=== PATIENT | female | born 1990 | race Caucasian/White ===

== ENCOUNTER 2017-03-22 21:41 | Emergency (ER) | payer MEDICAID ==
--- NOTE | 2017-03-22 22:39 | ED Physician Chart ---
Chief Complaint/HPI - Patient Information Date Seen:: 03/22/17 Time Seen:: 22:00 Chief Complaint:: LEFT FOOT INJURY History of Present Illness:: THIS IS A 27 YO FEMALE WITH CONCERN ABOUT HER LEFT FOOT THAT IS PAINFUL TO WALK ON SINCE EARLIER TODAY. SHE STATES THAT SHE JUST STOOD UP AND TWIST HER LEFT FOOT AND IT HAS BEEN HURTING EVERY SINCE. SHE DENIES ANY PREVIOUS INJURY OF HER LEFT FOOT OR ANKLE. Allergies:: Allergies Allergy/AdvReac Type Severity Reaction Status Date / Time No Known Allergies Allergy Verified 04/30/16 12:52 Vitals:: Vital Signs - 8 hr 03/22/17 21:48 Temp 98.4 F HR 87 RR 19 BP 142/85 O2 Sat % 98 Historian:: Patient Review:: Nurse's Note Reviewed Review of Systems - Review of Systems General/Constitutional: No fever, No chills, No weight loss, No weakness, No diaphoresis, No edema, No loss of appetite Skin: No skin lesions, No rash, No bruising Head: No headache, No light-headedness Eyes: No loss of vision, No pain, No diplopia ENT: No earache, No nasal drainage, No sore throat, No tinnitus Neck: No neck pain, No swelling, No thyromegaly, No stiffness, No mass noted Cardio Vascular: No chest pain, No palpitations, No PND, No orthopnea, No edema Pulmonary: No SOB, No cough, No sputum, No wheezing GI: No nausea, No vomiting, No diarrhea, No pain, No melena, No hematochezia, No constipation, No hematemesis G/U: No dysuria, No frequency, No hematuria Musculoskeletal: Bone or joint pain, No back pain, No muscle pain, Other (LEFT FOOT IS TENDER AND SWOLLEN OVER THE BASE OF THE 5TH METATARSAL BONE) Endocrine: No polyuria, No polydipsia Psychiatric: No prior psych history, No depression, No anxiety, No suicidal ideation Hematopoietic: No bruising, No lymphadenopathy Allergic/Immuno: No urticaria, No angioedema Neurological: No syncope, No focal symptoms, No weakness, No paresthesia, No headache, No seizure, No dizziness, No confusion, No vertigo Past Medical History - Past Medical History Obtainable: Yes Past Medical History: No significant medical hx Family History: None Social History: Smoker, No Alcohol, Illicit Drug Use Surgical History: None Psychiatricy History: None Medication: Reviewed Family Medical History - Family Member Grandmother History Unknown: Yes Name:: Grand mother Living Status: Still Living Hx Family Hypertension: Yes Physical Exam - Physical Examination General/Constitutional: Awake, Well-developed, well-nourished, Alert, No distress, GCS 15, Non-toxic appearing, Ambulatory Head: Atraumatic Eyes: Lids, conjuctiva normal, PERRL, EOMI Skin: Nl inspection, No rash, No skin lesions, No ecchymosis, Well hydrated, No lymphadenopathy ENMT: External ears, nose nl, Nasal exam nl, Lips, teeth, gums nl Neck: Nontender, Full ROM w/o pain, No JVD, No nuchal rigidity, No bruit, No mass, No stridor Respiratory: Nl effort/Exclusion, Clear to Auscultation, No Wheeze/Rhonchi/Rales Cardio Vascular: RRR, No murmur, gallop, rubs, NL S1 S2 GI: No tenderness/rebounding/guarding, No organomegaly, No hernia, Normal BS's, Nondistended, No mass/bruits, No McBurney tenderness : No CVA tenderness Extremities: Full ROM, normal strength in all extremities, No edema, Normal digits & nails Other Extremities comments:: THERE IS SWELLING AND TENDERNESS OF THE LEFT LATERAL FOOT OVER THE 5TH METATARSAL BONE. Neuro/Psych: Alert/oriented, DTR's symmetric, Normal sensory exam, Normal motor strength, Judgement/insight normal, Mood normal, Normal gait, No focal deficits Misc: normal gait, Normal back, No paraspinal tenderness Labs/Radiology/EKG Results - Lab Results Results: Laboratory Tests LEFT FOOT X-RAY = NAD 03/22/17 22:00 Urine Test NEGATIVE Assessment - Assessment General Assessment: SPRAIN ED Septic Shock - . Is Septic Shock (SBP<90, OR Lactate>4 mmol\L) present?: No - <6hrs of presentation: Vital Signs: Vital Signs - 8 hr 03/22/17 21:48 Temp 98.4 F HR 87 RR 19 BP 142/85 O2 Sat % 98 Reassessment (Disposition) - Reassessment Reassessment Condition:: Improved - Diagnosis Diagnosis:: SPRAIN LEFT FOOT - Aftercare/Follow up Instructions Aftercare/Follow-Up Instructions:: Counseled pt regarding lab results/diagnosis & need follow up, Refer to Discharge Instructions, Counseled pt & family regarding lab results/diagnosis & need follow up - Patient Disposition Discharge/Transfer:: Home Condition at Disposition:: Improved ED Discharge Plan - Patient Disposition Admit/Discharge/Transfer: PT DISCHARGED HOME Condition at Disposition: Improved Instructions: Ankle Sprain, [id number], Foot Sprain
--- NOTE | 2017-03-23 10:05 | Diagnostic Imaging Report ---
Left foot (3 views) HISTORY: Pain, trauma No acute bony abnormalities. No fractures. Joint spaces appear normal. IMPRESSION: No acute bony abnormalities
== END 2017-03-22 22:45 | disposition home or self-care (01) ==
LOC: ER 21:41
DX: S93.602A Unspecified sprain of left foot, initial encounter (principal); F17.200 Nicotine dependence, unspecified, uncomplicated; X58.XXXA Exposure to other specified factors, initial encounter; Y93.89 Activity, other specified; Y92.89 Other specified places as the place of occurrence of the external cause; Y99.8 Other external cause status
CPT/HCPCS: 99285; 96372; 73630; 81025; J1885

== ENCOUNTER 2018-02-01 11:18 | Emergency (ER) | payer MEDICAID ==
--- NOTE | 2018-02-01 11:55 | ED Physician Chart ---
ED Chief Complaint/HPI - Patient Information Date Seen:: 02/01/18 Time Seen:: 11:34 Chief Complaint:: BODY ACHES History of Present Illness:: HPI: THIS 27 YEAR OLD FEMALE PRESENTS WITH THREE DAY HISTORY OF SORE THROAT, COUGH WHICH IS PRODUCTIVE OF YELLOW SPUTUMAND BODY ACHES.SHE DENIES ANY FEVER, CHILLS,DIAPHORESIS OR RASH.SHE RATES THE SEVERITY OF THE SORE THROAT A 8/ 10.THERE IS INCREASED PAIN WITH SWALLOWING. Allergies:: Allergies Allergy/AdvReac Type Severity Reaction Status Date / Time No Known Allergies Allergy Verified 04/30/16 12:52 ED Review of Systems - Review of Systems General/Constitutional: No fever, No chills, No weight loss, No weakness, No diaphoresis Skin: No skin lesions Head: Headache (PATIENT HAS HAD A MILD HEADACHEOVER THE PAST THREE DAYSWHICH IS NOT SEVEREAS FOR MIGRAINE HEADACHE.) Eyes: No loss of vision, No diplopia ENT: No earache, Sore throat, No tinnitus Neck: Neck pain, No swelling, No thyromegaly, No stiffness, No mass noted Cardio Vascular: No chest pain, No palpitations, No PND, No orthopnea, No edema Pulmonary: No SOB, Cough, Sputum, No wheezing GI: No nausea, No vomiting, No diarrhea, No constipation, No hematemesis G/U: No dysuria, No frequency, No hematuria Insurance Follow Up Rep: No vaginal discharge, No abnormal vaginal bleed Musculoskeletal: Back pain, Muscle pain Endocrine: No polyuria, No polydipsia Psychiatric: No prior psych history, No depression, No suicidal ideation Hematopoietic: No bruising, No lymphadenopathy Allergic/Immuno: No urticaria, No angioedema Neurological: No syncope, No focal symptoms, Weakness (MILD GENERALIZED WEAKNESSFOR PAST THREE DAYS.), No paresthesia, Headache, No seizure, No dizziness, No confusion, No vertigo ED Past Medical History - Past Medical History Past Medical History: Other (HISTORY OF MIGRAINE HEADACHESIN FAMILY HISTORY OF MIGRAINE) Family History: Other (MIGRAINE HEADACHES.COCATIONAL USE OF ALCOHOL AND SMOKE MARIJUANA.) Family Medical History - Family Member Grandmother History Unknown: Yes Living Status: Still Living Hx Family Hypertension: Yes ED Physical Exam - Physical Examination General/Constitutional: Awake, Well-developed, well-nourished, Alert, Non-toxic appearing, Ambulatory Other Gen/Cons comments:: THE PATIENT STATES THE SEVERITY OF HER NECK PAIN.IN SPITE OF THIS,SHE DOESN'T APPEAR TO BE IN ANY DISTRESS. Head: Atraumatic Eyes: Lids, conjuctiva normal, PERRL, EOMI Skin: No rash, No ecchymosis, No lymphadenopathy ENMT: External ears, nose nl, Nasal exam nl, Lips, teeth, gums nl, Tonsils nl Other ENMT comments:: THERE IS NO ENLARGEMENTFOR INFLAMMATION OF THE TONSILS,AND A SMALL AMOUNT OF WHITE TONSILLAR EXUDATE. Neck: No nuchal rigidity, No stridor Other Neck comments:: THERE WAS NO FULNESS IN THE JERICA-TONSILLAR REGION. THE PATIENT'S VOICE WAS CLEAR AND NOT MUFFLED OR HOARSE. THE PT HAD NO STRIDOR. Respiratory: Nl effort/Exclusion, Clear to Auscultation, No Wheeze/Rhonchi/Rales Cardio Vascular: RRR, No murmur, gallop, rubs, NL S1 S2 Other Cardio Vascular comments:: PERIPHERAL PULSESFOR A GOOD QUALITY IN ALL FOUR EXTREMITIES. GI: No tenderness/rebounding/guarding, No organomegaly, No hernia, Normal BS's, Nondistended, No mass/bruits, No McBurney tenderness Other GI comments:: RECTAL EXAMINATION WAS DEFERRED AT MY DISCRETION. : No CVA tenderness Extremities: No tenderness or effusion, Full ROM, normal strength in all extremities, No edema Other Extremities comments:: NO JOINT INFUSIONSAND THOSE SWOLLEN JOINTSOR TENDERNESS. Neuro/Psych: Alert/oriented, Normal sensory exam, Normal motor strength, Judgement/insight normal, Mood normal, Normal gait, No focal deficits Misc: Normal back, No paraspinal tenderness Other Misc comments:: NO SPINAL TENDERNESSOR DEFORMITY. ED Labs/Radiology/EKG Results - Lab Results Results: Laboratory Tests 02/01/18 12:08 WBC 9.4 RBC 4.03 Hgb 13.5 Hct 38.4 L MCV 95.5 MCH 33.7 H MCHC Differential 35.2 RDW 11.7 Plt Count 171 MPV 7.4 Neutrophils % 72.6 Lymphocytes % 16.3 L Monocytes % 7.4 Eosinophils % 2.3 Basophils % 1.4 CBCWAS UNREMARKABLE WITH NO LEAP OF PSYCHOSIS, ANEMIAFOR PLATELET ABNORMALITY. THE RAPID STREP SCREEN WAS NEGATIVE. HEY MONO SPOT TEST WAS SENT,THE RESULTS OF WHICH ARE PENDING AT THIS TIME. ED Assessment - Assessment General Assessment: CASE SUMMARY:THIS 27-YEAR-OLD FEMALE PRESENTSTHREE DAY COURSE OF MYALGIAS,BODY ACHES,COUGH PRODUCTIVE OF YELLOW SPUTUM,AND SORE THROAT.THE PATIENT HAS NOT EXPERIENCED ANY FEVER,CHILLSFOR DIFFICULTY BREATHING.ON PHYSICAL EXAMINATIONTHERE WAS MINIMAL IF ANYINFLAMMATION IN THE POSTERIOR PHARYNX.THERE IS MINIMAL TONSILLAR ENLARGEMENTWITH NO ASSOCIATED MASSES. THE.CBC WAS UNREMARKABLEAND THERE WAS NO LEUKOCYTOSIS OR ANEMIA. THE RAPID STREP SCREEN WAS NEGATIVE. THE MONO-SPOT TEST RESULTS WERE NOT AVAILABLE THE TEST IS A "SEND-OUT" THERE WAS NO AIRWAY COMPROMISE AND THE PT'S SYMPTOMS WERE ADDRESSED WITH 8 MG OF DEXAMETHASONE. SHE WAS ADVISED TO USE IBUPROFEN FOR PAIN CONTROL. MDM-DDX SORE THROAT: NOT JERICA-TONSILAR ABSCESS BASED ON PHYSICAL EXAM. NOT LEMERRIE'S SYNDROME BASED ON PHYSICAL EXAM. NOT EPIGLOTITIS BASED ON PHYSICAL EXAM. ED Septic Shock - . Is Septic Shock (SBP<90, OR Lactate>4 mmol\\L) present?: No ED Reassessment (Disposition) - Reassessment Reassessment Condition:: Unchanged - Diagnosis Diagnosis:: VIRAL PHARYNGITIS PT WAS ADVISED TO FOLLOW UP WITH HER PRIMARY CARE PHYSICIANFOR SYMPTOMS HAVE NOTRESOLVED WITHIN THE NEXT 7 TO 10 DAYS. SHE WAS FURTHER ADVISEDRETURN TO THE EMERGENCY DEPARTMENTFOR ANY AIRWAYOBSTRUCTIONOR SIGNIFICANT DIFFICULTY BREATHING.SHE CAN TAKE OVER-THE- COUNTER IBUPROFENFOR PAIN CONTROL. ED Discharge Plan - Patient Disposition Admit/Discharge/Transfer: PT DISCHARGED HOME Condition at Disposition: Stable Instructions: Viral Pharyngitis Additional Instructions: Follow-up with primary MD. If symptoms worsen, return to nearest ED.
[2018-02-01 12:23] LABS: % BASOPHILS 1.4 % (0.0-2.0); % EOSINOPHILS 2.3 % (0.0-5.0); % LYMPHOCYTES 16.3 % (20.0-50.0); % MONOCYTES 7.4 % (2.0-10.0); % NEUTROPHILS 72.6 % (40.0-80.0); BASOPHILE ABSOLUTE 0.1 Th/cumm (0-0.2); EOSINOPHILE ABSOLUTE 0.2 Th/cmm (0.1-0.4); HEMATOCRIT 38.4 % (41.0-60); HEMOGLOBIN 13.5 gm/dL (12-16); LYMPHOCYTE ABSOLUTE 1.5 Th/cmm (1.5-3.0); MEAN CELL VOLUME 95.5 fl (81-100); MEAN CORPUSCULAR HEMOGLOBIN 33.7 pg (27.0-31.0); MEAN CORPUSCULAR HGB CONC 35.2 pg (28.0-36.0); MEAN PLATELET VOLUME 7.4 fl; MONOCYTE ABSOLUTE 0.7 Th/cmm (0.3-1.0); NEUTROPHILE ABSOLUTE 6.9 Th/cmm (1.8-8.0); PLATELET COUNT 171 Th/cmm (150-400); RED BLOOD COUNT 4.03 Mil/cmm (3.80-5.10); RED CELL DISTRIBUTION WIDTH 11.7 % (11.5-20.0); WHITE BLOOD COUNT 9.4 Th/cmm (4.8-10.8)
== END 2018-02-01 13:28 | disposition home or self-care (01) ==
LOC: ER 11:18
DX: J02.8 Acute pharyngitis due to other specified organisms (principal)
CPT/HCPCS: 36415-UA; 85025-TC; 86308-90; 87081-90; Z7502